=== PATIENT | female | born 1995 | race Caucasian/White ===

== ENCOUNTER 2023-10-15 14:38 | Inpatient (IN) ==
[2023-10-15] MEDS ORDERED: LIDOCAINE 1% LOCAL 20 ML VIAL INFIL PRN (20:03)
[2023-10-15] MEDS ORDERED: OXYTOCIN 30 UNITS/NSS 30 UNITS/500 ML BAG IV PRN (20:03)
[2023-10-15 20:53] LABS: Hemoglobin 12.6 g/dl (12.0-16.0); Mean Corpuscular Hemoglobin 30.5 pg (25.0-34.0); Mean Corpuscular Hgb Conc 33.2 g/dL (32.0-36.0); Mean Platelet Volume 9.2 fL (9.4-12.4); Platelet Count 306 K/uL (130-400); RDW Coefficient of Variation 12.7 % (11.5-14.5); Red Blood Count 4.13 M/uL (4.20-5.40); White Blood Count 10.63 K/ul (4.8-10.8)
[2023-10-15 21:14] LABS: Albumin Globulin Ratio 1.2 (0.9-2); Albumin Level 3.3 gm/dl (3.4-5.0); BUN Creatinine Ratio 19.7 (10-20); Bilirubin,Total 0.3 mg/dl (0.2-1.0); Calcium 8.6 mg/dl (8.6-10.3); Creatinine Clr Calc Pharmacy 143.7 ml/min; Est GFR (Non-African American) 122.5 ml/min; Globulin 2.8 gm/dl (2.5-4.0); Potassium 3.9 mmol/L (3.5-5.1); Total Protein 6.1 gm/dl (6.0-8.3)
--- NOTE | 2023-10-15 21:19 | History & Physical Report ---
Date of Service October 15, 2023 Assessment & Plan (1) 40 weeks gestation of : Plan: Admit, routine labs Basal Postel 50 mcg p.o. every 4 hours Oxytocin when patient makes cervical change for further augmentation Epidural when patient request AROM after Anticipate spontaneous vaginal delivery (2) Obesity affecting in third trimester: (3) Migraine without aura: (4) Normal first confirmed, currently in third trimester: (5) Glucose intolerance of : Admission and Anticipated Discharge Date Admission Date: October 15, 2023 History of Present Illness Chief Complaint: IOL Primary Care Provider: NO PCP Patient is a pleasant 28-year-old G1, P0 at 40 weeks and 5 days who presents for postdates induction. She denies any regular contractions. Notes good movement. Denies any headache, blurry vision, right upper quadrant or epigastric pain. Denies any leakage of fluid or vaginal bleeding. Otherwise feeling well has been complicated by class I obesity, history of migraine during . Allergies Allergy/AdvReac Type Severity Reaction Status Date / Time No Known Allergies Allergy Unverified 10/15/23 20:16 Home Medications Medication Instructions Recorded Confirmed Type vits no.124-ferrous fum 1 tab PO DAILY 10/15/23 10/15/23 History 27 mg iron-folic acid 800 mcg tablet ( Vitamin) Patient History Social History Smoking Status: Never smoker Hx Alcohol Use: No Hx Substance Use: No Preferred Language: [place] Communication Ability: Effective Manager Testing Required: No Beliefs That Will Affect Care: None marital status: Current Living Situation: Spouse Current Living Situation Comment: [facility] Other Information That Helps Us Care for You: No Feels Safe at Home: Yes Safety Concerns: Feels Safe At This Time Assistive Devices: Contacts OB History [employer] History See record Review of Systems All systems reviewed & are unremarkable except as noted in HPI & below Physical Exam Constitutional: WD/WN, vitals as above Respiratory: normal respiratory effort, lungs clear to auscultation Cardiovascular: RRR, no murmur, no edema Gastrointestinal (Abdomen): normal bowel sounds, soft, nontender, no hepatosplenomegaly Cephalic by Buck's, estimated weight 3200 Genitourinary: Cervix: 1-2/50/-2, cephalic as sutures were felt Membranes swept with patient's permission Results & Data Vital Signs (Past 12 Hours) Vital Signs Temp Resp 10/15/23 19:56 36.9 C 18 Monitoring External Monitor heart tracing: Baseline 150, moderate variability, positive accelerations no decelerations, category 1 tracing Tocodynamometer Irritability (2) Obesity affecting in third trimester Obesity type affecting : other obesity due to excess calories Qualified Code(s): O99.213 - Obesity complicating , third trimester; E66.09 - Other obesity due to excess calories (3) Migraine without aura Status migrainosus presence: without status migrainosus
[2023-10-15] MEDS: miSOPROStoL 50 MCG TAB PO SCH (21:37)
[2023-10-16] MEDS: ONDANSETRON INJ 2 MG/ML 2 ML VIAL IV PRN (05:21)
[2023-10-16] MEDS: LACTATED RINGER'S 1,000 ML IV PRN (06:19)
--- NOTE | 2023-10-16 06:19 | Obstetrical Progress Note ---
Date of Service October 16, 2023 Assessment & Plan (1) 40 weeks gestation of : Plan: Patient is status post 2 doses of misoprostol p.o. Patient to receive epidural, anesthesia will be consulted Start oxytocin for augmentation after epidural Anticipate spontaneous vaginal delivery (2) Obesity affecting in third trimester: (3) Migraine without aura: (4) Normal first confirmed, currently in third trimester: (5) Glucose intolerance of : Admission and Anticipated Discharge Date Admission Date: October 15, 2023 Subjective Patient getting more uncomfortable with contractions, would like epidural after AROM Physical Exam Genitourinary: heart tracing: Baseline 140, moderate variability, no accelerations, no decelerations Tocometer: Irregular contractions Cervix: 4/60/-3, AROM performed with scant amount of clear fluid. Patient tolerated well, no cord felt. No complications Results & Data Vital Signs (Past 12 Hours) Vital Signs Temp Pulse Pulse Resp BP BP 10/16/23 05:12 83 119/68 10/16/23 05:10 18 10/16/23 05:10 36.8 C 18 10/16/23 02:00 16 10/16/23 02:00 36.6 C 16 10/16/23 01:59 75 123/79 10/15/23 23:43 36.6 C 87 18 117/71 10/15/23 19:57 103 H 130/86 10/15/23 19:56 36.9 C 18 (2) Obesity affecting in third trimester Obesity type affecting : other obesity due to excess calories Q ualified Code(s): O99.213 - Obesity complicating , third trimester; E66.09 - Other obesity due to excess calories (3) Migraine without aura Status migrainosus presence: without status migrainosus
--- NOTE | 2023-10-16 07:06 | Anesthesiology Consultation ---
Date of Service October 16, 2023 Assessment & Plan Chart Review Chart Review: Acceptable Risk for Labor Epidural Consults Requested none History Height/Weight Height: 5 ft 2 in Weight: 92.079 kg Allergies Allergy/AdvReac Type Severity Reaction Status Date / Time No Known Allergies Allergy Unverified 10/15/23 20:16 Medications Home Medications Medication Instructions Recorded Confirmed Last Taken vits no.124-ferrous fum 1 tab PO DAILY 10/15/23 10/15/23 10/14/23 27 mg iron-folic acid 800 mcg tablet ( Vitamin) Active Medications Generic Name Dose Route Start Last Admin Trade Name Freq PRN Reason Stop Dose Admin Lactated Ringer's 1,000 mls @ 125 mls/hr 10/15/23 20:03 10/16/23 06:19 Lr IV 10/17/23 20:02 999 mls/hr .Q8H PRN Administration L&D Protocol Protocol Misoprostol 50 mcg 10/15/23 21:20 10/16/23 01:37 Misoprostol 50 Mcg Tab PO 11/14/23 21:19 50 mcg Q4 KENDALL Administration Ondansetron HCl 4 mg 10/16/23 05:15 10/16/23 05:21 Ondansetron Inj 2 Mg/Ml 2 Ml Vial IV 11/15/23 05:14 4 mg Q6H PRN Administration Nausea And Vomiting Social History Smoking Status: Never smoker Hx Alcohol Use: No Hx Substance Use: No Physical Exam Vital Signs Last Vital Signs Temp 37.0 C 10/16/23 06:41 Pulse 92 H 10/16/23 06:58 Resp 20 10/16/23 06:41 BP 119/68 10/16/23 05:12 Pulse Ox 93 10/16/23 06:58 Testing Laboratory Results 10/15/23 20:42 10/15/23 20:42 Blood Type O Positive 10/15/23 20:42 Antibody Screen NEGATIVE 10/15/23 20:42
[2023-10-16] MEDS ORDERED: diphenhydrAMINE 50 MG/ML VIAL IV PRN (07:07)
[2023-10-16] MEDS ORDERED: LIDOCAINE 2% MPF LOCAL 5 ML VIAL EPI PRN (07:07)
[2023-10-16] MEDS ORDERED: NALBUPHINE HCL 5 MG in SYRINGE 0 ML IV PRN (07:07)
[2023-10-16] MEDS ORDERED: NALOXONE HCL 0.4 MG/1 ML VIAL/CARP IV PRN (07:07)
[2023-10-16] MEDS ORDERED: ROPIVACAINE 0.5% PF 5 MG/ML 20 ML VIAL EPI PRN (07:07)
[2023-10-16] MEDS ORDERED: BUPIVACAINE 0.25% PF 30 ML VIAL EPI PRN (07:07)
[2023-10-16] MEDS ORDERED: NALOXONE HCL 1 MG in SODIUM CHLORIDE 0.9% 1,000 ML IV PRN (07:07)
[2023-10-16] MEDS ORDERED: fentaNYL citrate PF 100 MCG/2 ML VIAL EPI PRN (07:07)
[2023-10-16] MEDS ORDERED: SODIUM CHLORIDE 0.9% PF INJ 10 ML VIAL EPI PRN (07:07)
[2023-10-16] MEDS ORDERED: ePHEDrine sulfate 50 MG/ML AMP IV PRN (07:07)
[2023-10-16] MEDS: fentANYL 2 MCG/ML BUPIVacaine 0.125%-NSS 100ML BAG ONE (07:31)
[2023-10-16] MEDS: SODIUM CHLORIDE 0.9% PF INJ 10 ML VIAL ONE (07:39)
[2023-10-16] MEDS: BUPIVACAINE 0.25% PF 30 ML VIAL ONE (07:39)
[2023-10-16] MEDS: ePHEDrine sulfate 50 MG/ML AMP ONE (07:39)
[2023-10-16] MEDS: LIDOCAINE 2%/EPINEPHRINE 1:200,000 20 ML PF ONE (07:39)
[2023-10-16] MEDS: fentaNYL citrate PF 100 MCG/2 ML VIAL ONE (07:39)
[2023-10-16] MEDS ORDERED: Nursing to Pharmacy Communication SCH (08:45)
[2023-10-16] MEDS: OXYTOCIN 30 UNITS/NSS 30 UNITS/500 ML BAG IV PRN (09:30)
[2023-10-16] MEDS ORDERED: NURSING L&D Epidural Breakthrough Pain Update ONE (10:21)
[2023-10-16] MEDS: LIDOCAINE 2%/EPINEPHRINE 1:200,000 20 ML PF EPI STA (10:51)
--- NOTE | 2023-10-16 11:03 | Anesthesia Procedure Note ---
Date of Service October 16, 2023 Anesthesia Epidural Re-Dose Vital Signs Temp Pulse Resp BP Pulse Ox 36.8 C 108 H 20 131/64 97 10/16/23 10:52 10/16/23 10:58 10/16/23 10:52 10/16/23 10:56 10/16/23 10:58 Notes Pain Intensity: 6 Dilatation (cm): 5.5 Effacement (%): 90 Called by nursing to evaluate epidural as the patient is having increased pain. The epidural was re-dosed with the following medications (all medications via epidural route) after negative aspiration of the epidural catheter for CSF/HEME. 5cc 2% lidocaine w epi After Epidural Re-Dose Mental Status: alert / awake / arousable and participated in evaluation Pain: improving with treatment Airway Patency, RR, SpO2: stable & adequate BP & HR: stable & adequate
[2023-10-16] MEDS: fentANYL 2 MCG/ML BUPIVacaine 0.125%-NSS 100ML BAG EPI PRN (11:56)
[2023-10-16] MEDS ORDERED: OXYTOCIN 30 UNITS/NSS 30 UNITS/500 ML BAG IV PRN (14:20)
[2023-10-16] MEDS ORDERED: bisacodyL 10 MG SUPP PR PRN (14:20)
[2023-10-16] MEDS ORDERED: ACETAMINOPHEN 325 MG TAB PO PRN (14:20)
[2023-10-16] MEDS ORDERED: HYDROCORTISONE ACETATE 25 MG SUPP PR PRN (14:20)
--- NOTE | 2023-10-16 14:24 | Delivery Summary ---
Vaginal Delivery Summary Date of Service October 16, 2023 Vaginal Delivery Summary live female REMIGIO over intact perineum with nuchal cord x2 reduced at delivery with delayed cord clamping with Apgars 8/9 weight pending. Cord blood obtained followed by spontaneous delivery of intact placenta. First degree vaginal tear repaired with 3/0 Vicryl suture. Final sponge, needle and instrument count are correct. QBL 282 ml. Mom and baby stable.
[2023-10-16] MEDS: fentaNYL citrate PF 100 MCG/2 ML VIAL EPI STA (14:35)
[2023-10-16] MEDS: BUPIVACAINE 0.25% PF 30 ML VIAL EPI STA (14:35)
[2023-10-16] MEDS: SODIUM CHLORIDE 0.9% PF INJ 10 ML VIAL EPI STA (14:35)
[2023-10-16] MEDS: DIPHTHER/TETAN/PERTUS Vaccine (Tdap, Adol/Adult) 0.5mL IM ONE (14:36)
--- NOTE | 2023-10-16 15:14 | Anesthesia Procedure Note ---
Date of Service October 16, 2023 Anesthesia Post Epidural Note Vital Signs Vital Signs: Temp Pulse Resp BP Pulse Ox 36.9 C 110 H 20 129/70 95 10/16/23 12:45 10/16/23 15:11 10/16/23 12:45 10/16/23 15:11 10/16/23 13:58 Pain Intensity Bilateral Abdomen: Pain Intensity: 0 Notes Mental Status: alert / awake / arousable and participated in evaluation Nausea / Vomiting: adequately controlled Pain: adequately controlled Airway Patency, RR, SpO2: stable & adequate BP & HR: stable & adequate Hydration State: stable & adequate Neuraxial Anesthesia: was administered and sensory block is resolving Anesthetic Complications: no major complications apparent and Pt Satisfied with anesthetic care Epidural: Removed without complications and With tip intact
[2023-10-16] MEDS: BENZOCAINE 20% SPRY 85 APPLN/85 GM CAN EXT PRN (16:37)
[2023-10-16] MEDS: IBUPROFEN 600 MG TAB PO PRN (16:37)
[2023-10-16] MEDS: DOCUSATE SODIUM 100 MG CAP PO SCH (21:09)
[2023-10-17 08:14] LABS: Hematocrit (blood only) 31.3 % (37.0-47.0); Hemoglobin 10.1 g/dl (12.0-16.0); Mean Corpuscular Hemoglobin 30.3 pg (25.0-34.0); Mean Corpuscular Hgb Conc 32.3 g/dL (32.0-36.0); Mean Platelet Volume 9.3 fL (9.4-12.4); Platelet Count 231 K/uL (130-400); RDW Coefficient of Variation 12.9 % (11.5-14.5); RDW Standard Deviation 43.9 fL (36.4-46.3); Red Blood Count 3.33 M/uL (4.20-5.40); White Blood Count 14.52 K/ul (4.8-10.8)
[2023-10-17] MEDS: PRENATAL VITAMIN 1 TAB PO SCH (08:27)
[2023-10-17] MEDS: FERROUS SULFATE 325 MG TAB PO SCH (08:28)
--- NOTE | 2023-10-17 08:47 | Obstetrical Progress Note ---
Date of Service October 17, 2023 Assessment & Plan (1) Normal course: Continue routine care Anticipate discharge home tomorrow if doing well Patient to call if worsening swelling, any signs or symptoms of blood clots Patient and partner updated at bedside voiced her understanding Subjective Ambulation: ambulating normally Voiding: no voiding problems Passing Gas:: Yes Diet Tolerance:: regular diet Lochia:: Small Feeding Type:: breast feeding Current Pain Level(1-10): 0 Patient doing well, bonding with baby in room. Only complaint at this time and has ongoing swelling in her feet. Otherwise doing well. Denies any shortness of breath or chest pain, denies any redness of her leg or cramping Physical Exam Constitutional WD/WN, vitals as above Respiratory normal respiratory effort, lungs clear to auscultation Cardiovascular RRR, no murmur, no edema Gastrointestinal (Abdomen) normal bowel sounds, soft, nontender, no hepatosplenomegaly Fundus below U Lymphatic 2+ pitting edema bilaterally and equal on feet Results & Data Vital Signs (Past 12 Hours) Vital Signs Temp Pulse Resp BP Pulse Ox O2 Del Method 10/17/23 08:10 36.6 C 76 109/68 10/17/23 04:00 36.7 C 70 18 123/82 98 Room Air 10/17/23 00:00 36.6 C 68 16 123/77 96 Room Air Laboratory Results Laboratory Results WBC 14.52 K/ul (4.8-10.8) H 10/17/23 07:57 RBC 3.33 M/uL (4.20-5.40) L 10/17/23 07:57 Hgb 10.1 g/dl (12.0-16.0) L 10/17/23 07:57 Hct 31.3 % (37.0-47.0) L 10/17/23 07:57 MCV 94.0 fL (80.0-100.0) 10/17/23 07:57 MCH 30.3 pg (25.0-34.0) 10/17/23 07:57 MCHC 32.3 g/dL (32.0-36.0) 10/17/23 07:57 RDW Std Deviation 43.9 fL (36.4-46.3) 10/17/23 07:57 RDW Coeff of Nate 12.9 % (11.5-14.5) 10/17/23 07:57 Plt Count 231 K/uL (130-400) 10/17/23 07:57 MPV 9.3 fL (9.4-12.4) L 10/17/23 07:57 Sodium 138 mmol/L (136-145) 10/15/23 20:42 Potassium 3.9 mmol/L (3.5-5.1) 10/15/23 20:42 Chloride 109 mmol/L (98-107) H 10/15/23 20:42 Carbon Dioxide 20 mmol/L (21-32) L 10/15/23 20:42 Anion Gap 9 (3-11) 10/15/23 20:42 BUN 12 mg/dl (6-23) 10/15/23 20:42 Creatinine 0.61 mg/dl (0.6-1.2) 10/15/23 20:42 Est Cr Clr Drug Dosing 143.7 ml/min 10/15/23 20:42 Est GFR ( Amer) 142.0 ml/min 10/15/23 20:42 Est GFR (Non-Af Amer) 122.5 ml/min 10/15/23 20:42 BUN/Creatinine Ratio 19.7 (10-20) 10/15/23 20:42 Glucose 106 mg/dl (70-99(Fasting)) H 10/15/23 20:42 Calcium 8.6 mg/dl (8.6-10.3) 10/15/23 20:42 Total Bilirubin 0.3 mg/dl (0.2-1.0) 10/15/23 20:42 AST 21 U/L (13-39) 10/15/23 20:42 ALT 15 U/L (7-52) 10/15/23 20:42 Alkaline Phosphatase 139 U/L (34-104) H 10/15/23 20:42 Total Protein 6.1 gm/dl (6.0-8.3) 10/15/23 20:42 Albumin 3.3 gm/dl (3.4-5.0) L 10/15/23 20:42 Globulin 2.8 gm/dl (2.5-4.0) 10/15/23 20:42 Albumin/Globulin Ratio 1.2 (0.9-2) 10/15/23 20:42 RPR Nonreactive (Nonreactive) 10/15/23 20:42 Blood Type O Positive 10/15/23 20:42 Antibody Screen NEGATIVE 10/15/23 20:42
[2023-10-17] MEDS ORDERED: PRENATAL VITAMIN 1 TAB PO SCH (09:00)
[2023-10-17] MEDS: bisacodyL 5 MG TABEC PO SCH (20:35)
[2023-10-18 07:19] LABS: Hematocrit (blood only) 32.8 % (37.0-47.0); Hemoglobin 10.5 g/dl (12.0-16.0)
--- NOTE | 2023-10-18 08:02 | Obstetrical Progress Note ---
Date of Service October 18, 2023 Assessment & Plan (1) Normal course: Continue routine care MARIELA stockings Patient to call if worsening swelling, any signs or symptoms of blood clots Discharge home today with instructions Patient and partner updated at bedside voiced her understanding Subjective Ambulation: ambulating normally Voiding: no voiding problems Passing Gas:: Yes Diet Tolerance:: regular diet Lochia:: Small Feeding Type:: breast feeding Current Pain Level(1-10): 0 Patient doing well, still having swelling in her feet. Bonding with baby in the room. Denies any fevers, shortness of breath or chest pain. Would like to go home today Physical Exam Constitutional WD/WN, vitals as above Respiratory normal respiratory effort, lungs clear to auscultation Cardiovascular RRR, no murmur, no edema Gastrointestinal (Abdomen) normal bowel sounds, soft, nontender, no hepatosplenomegaly Lymphatic 2+ pitting edema in feet Results & Data Vital Signs (Past 12 Hours) Vital Signs Temp Pulse Resp BP Pulse Ox O2 Del Method 10/18/23 00:00 36.6 C 84 16 135/80 99 Room Air 10/17/23 20:30 36.5 C 98 H 16 136/77 98 Room Air Diagnostic Findings Laboratory Results WBC 14.52 K/ul (4.8-10.8) H 10/17/23 07:57 RBC 3.33 M/uL (4.20-5.40) L 10/17/23 07:57 Hgb 10.5 g/dl (12.0-16.0) L 10/18/23 06:35 Hct 32.8 % (37.0-47.0) L 10/18/23 06:35 MCV 94.0 fL (80.0-100.0) 10/17/23 07:57 MCH 30.3 pg (25.0-34.0) 10/17/23 07:57 MCHC 32.3 g/dL (32.0-36.0) 10/17/23 07:57 RDW Std Deviation 43.9 fL (36.4-46.3) 10/17/23 07:57 RDW Coeff of Nate 12.9 % (11.5-14.5) 10/17/23 07:57 Plt Count 231 K/uL (130-400) 10/17/23 07:57 MPV 9.3 fL (9.4-12.4) L 10/17/23 07:57 Sodium 138 mmol/L (136-145) 10/15/23 20:42 Potassium 3.9 mmol/L (3.5-5.1) 10/15/23 20:42 Chloride 109 mmol/L (98-107) H 10/15/23 20:42 Carbon Dioxide 20 mmol/L (21-32) L 10/15/23 20:42 Anion Gap 9 (3-11) 10/15/23 20:42 BUN 12 mg/dl (6-23) 10/15/23 20:42 Creatinine 0.61 mg/dl (0.6-1.2) 10/15/23 20:42 Est Cr Clr Drug Dosing 143.7 ml/min 10/15/23 20:42 Est GFR ( Amer) 142.0 ml/min 10/15/23 20:42 Est GFR (Non-Af Amer) 122.5 ml/min 10/15/23 20:42 BUN/Creatinine Ratio 19.7 (10-20) 10/15/23 20:42 Glucose 106 mg/dl (70-99(Fasting)) H 10/15/23 20:42 Calcium 8.6 mg/dl (8.6-10.3) 10/15/23 20:42 Total Bilirubin 0.3 mg/dl (0.2-1.0) 10/15/23 20:42 AST 21 U/L (13-39) 10/15/23 20:42 ALT 15 U/L (7-52) 10/15/23 20:42 Alkaline Phosphatase 139 U/L (34-104) H 10/15/23 20:42 Total Protein 6.1 gm/dl (6.0-8.3) 10/15/23 20:42 Albumin 3.3 gm/dl (3.4-5.0) L 10/15/23 20:42 Globulin 2.8 gm/dl (2.5-4.0) 10/15/23 20:42 Albumin/Globulin Ratio 1.2 (0.9-2) 10/15/23 20:42 RPR Nonreactive (Nonreactive) 10/15/23 20:42 Blood Type O Positive 10/15/23 20:42 Antibody Screen NEGATIVE 10/15/23 20:42
== END 2023-10-18 14:25 | disposition home or self-care (01) | DRG 807 ==
LOC: 4S1 19:42 → 4E2 10-16 16:55
DX: O70.0 First degree perineal laceration during delivery; Z3A.40 40 weeks gestation of pregnancy; O69.81X0 Labor and delivery complicated by cord around neck, without compression, not applicable or unspecified; O48.0 Post-term pregnancy; Z37.0 Single live birth